=== PATIENT | male | born 1960 | race Caucasian/White ===

== ENCOUNTER 2018-04-19 15:34 | Inpatient (IN) | payer OTHER ==
[~2018-04-19] VITALS: Ht 185.4 cm; Wt 91.8 kg
--- NOTE | ~2018-04-19 | HC ---
[facility] [place] [address] [place] [address] CONSULTATION Name: LILIA KEMP Room #: 213-P ADM IN M.R.#: [id number] Admission: 04/19/18 Attend Phys: Jorden Godwin MD Discharge: Date of : 64 Report #: [id number] THIS REPORT FOR: //name// CC: Jorden Godwin DATE OF SERVICE: 04/19/2018 REFERRING PHYSICIAN: Dr. Jorden Godwin. REASON FOR REFERRAL: Pulmonary embolus. HISTORY OF PRESENT ILLNESS: The patient is a 58-year-old white male who was electively admitted with chest pain. CT chest angiogram performed earlier today shows pulmonary embolus. A pulmonary consultation was requested. The patient states he has been relatively healthy most of his life. He is also active, playing basketball and rock climbing on a regular basis. He states that about a few weeks ago, he noticed that his right calf was swollen and tender. He does not know how he may have injured his calf. He has also been undergoing evaluation and treatment for a low back pain felt to be related to sciatica. About a week ago, he experienced right-sided pleuritic chest pain. Symptoms lasted for a short while and spontaneously resolved. About a week ago, he also developed mild fever and chills. He denies any productive cough. This morning, he awoke with a sharp pleuritic chest pain on the left. This occurred around 2:00 a.m. He was seen in the office. A CT chest angiogram performed earlier today showed small bilateral segmental pulmonary embolus involving the medial and lateral pulmonary arteries of the right middle lobe and also left lower lobe. There appears to be a wedge defect seen in the right lower lobe area. Small pleural effusion is noted on the left. No obvious wedge defect is noted in the left lower lobe area. The patient denies any past history of venous thromboembolic disease. He denies any family history of venous thromboembolic disease. He denies any recent travel, denies any recent trauma or surgery. PAST MEDICAL HISTORY: Otherwise, unremarkable other than low back pain. PAST SURGICAL HISTORY: Otherwise, unremarkable. ALLERGIES: No known allergies. MEDICATIONS: None. FAMILY HISTORY: Both parents are in good health. [address] [address] CONSULTATION Name: LILIA KEMP Room #: 213-P [facility] IN ..#: [id number] Admission: 04/19/18 Attend Phys: Jorden Godwin MD Discharge: Date of : 64 Report #: [id number] SOCIAL HISTORY: . Denies any tobacco or alcohol use. REVIEW OF SYSTEMS: As mentioned above. The patient is quite active, playing basketball, rock climbing. In fact, he was able to play basketball this giving and rock climbing without difficulty. PHYSICAL EXAMINATION: GENERAL: He is awake, alert, in no apparent distress. VITAL SIGNS: Temperature 36.7 degrees Celsius, pulse is 72, respiratory rate 22, blood pressure 154/92 mmHg, saturation 98%. HEENT: Normocephalic, atraumatic. NECK: Supple, without any lymphadenopathy or thyromegaly. CHEST: Breath sounds are clear bilaterally without any rales or wheezes. CARDIOVASCULAR: Normal S1, S2. No murmurs or gallop. There is no JVD. There is no carotid bruit. Pulses are 2+/4+ bilaterally. ABDOMEN: Soft, nontender, no organomegaly or masses felt. GENITOURINARY: Deferred. RECTAL: Deferred. EXTREMITIES: There is no edema, cyanosis or clubbing. LABORATORY DATA: CT chest angiogram as mentioned above. Electrolytes normal. Creatinine is 1.2. Liver enzymes are grossly unremarkable. WBC 7700, hemoglobin 14.0. IMPRESSION: 1. Small bilateral pulmonary embolus in this 58-year-old white male. History suggests possible right calf injury a few weeks ago resulting in edema. If the patient did have injury at that time, this is felt to be provoked event. 2. Pleuritic chest pain, initially in the right side about a week ago and on the left side, likely due to pulmonary infarction. 3. Small left-sided pleural effusion. The patient has a febrile illness recently. May have to monitor this closely. RECOMMENDATION AND DISCUSSION: Based on history, the patient's pulmonary embolus is felt to be provoked. Would recommend at least 6 months of anticoagulation given presence of probable pulmonary infarction. Heparin has been ordered. Would suggest starting Coumadin 24 hours later. If stable without any obvious bleeding complications, an oral agent can be utilized either Coumadin or direct oral anticoagulant. Since this history is not convincing of injury, it may be beneficial, later, after the patient completes about 6 months of anticoagulant therapy to do a hypocoagulable panel. I had a detailed discussion with the patient and his regarding above [facility] [address] [place] [address] CONSULTATION Name: LILIA KEMP Room #: 213-P ADM IN M.R.#: [id number] Admission: 04/19/18 Attend Phys: Jorden Godwin MD Discharge: Date of : 64 Report #: [id number] findings. Thank you for this consultation. <ELECTRONICALLY SIGNED> By: Jmaes Snider MD 04/20/181939 1834 54 James Snider MD /nt
--- NOTE | ~2018-04-19 | 2DMMODE ---
[facility] [place] [address] 2 D/M-MODE ECHOCARDIOGRAM Name: LILIA KEMP Room #: 213-P [facility] IN .R.#: [id number] Admission: 04/19/18 Attend Phys: Jorden Godwin, Discharge: Date of : 64 Date of Service: 04/20/18 0930 Report #: [id number] THIS REPORT FOR: //name// APPROVED REPORT Study performed: 04/20/2018 08:20:56 EXAM: Comprehensive 2D, Doppler, and color-flow Echocardiogram Patient Location: Bedside Room #: 213 Status: routine BSA: 2.16 HR: 88 bpm BP: 122/69 mmHg Rhythm: NSR Other Information Study Quality: Adequate Indications Pulmonary Embolism Chest Pain 2D Dimensions RVDd: 37.59 mm IVSd: 8.78 (7-11mm) LVOT Diam: 23.40 (18-24mm) LVDd: 50.56 mm PWd: 8.63 (7-11mm) Ascending Ao: 32.28 (22-36mm) LVDs: 36.24 (25-40mm) Aortic Root: 34.72 mm IVC: 10.00 mm Volumes Left Atrial Volume (Systole) Single Plane 4CH: 39.50 mL Single Plane 2CH: 34.68 mL LA ESV Index: 20.00 mL/m2 Aortic Valve AoV Peak Marques.: 1.43 m/s AO Peak Gr.: 8.22 mmHg LVOT Max P.79 mmHg LVOT Max V: 1.20 m/s PETERSON Vmax: 3.61 cm2 Mitral Valve E/A Ratio: 1.0 MV Decel. Time: 159.40 ms [facility] [place] [address] [place] [address] 2 D/M-MODE ECHOCARDIOGRAM Name: JUSTOLILIA G Room #: 213-P [facility] IN [facility]#: [id number] Admission: 04/19/18 Attend Phys: Jorden Godwin, Discharge: Date of : 64 Date of Service: 04/20/18 0930 Report #: [id number] MV E Max Marques.: 0.64 m/s MV A Marques.: 0.62 m/s MV PHT: 46.23 ms IVRT: 92.27 ms Pulmonary Valve PV Peak Marques.: 0.90 m/s PV Peak Gr.: 3.23 mmHg Pulmonary Vein P Vein S: 0.29 m/s P Vein A: 0.23 m/s P Vein D: 0.26 m/s P Vein A Dur.: 96.9 msec P Vein S/D Ratio: 1.12 Tricuspid Valve TR Peak Marques.: 2.39 m/s TR Peak Gr.: 22.79 mmHg PA Pressure: 28.00 mmHg Left Ventricle The left ventricle is normal size. There is normal LV segmental wall motion. There is normal left ventricular wall thickness. Left ventricular systolic function is normal. The left ventricular ejection fraction is within the normal range. LVEF is 55-60%. The left ventricular diastolic function is normal. Right Ventricle The right ventricle is normal size. The right ventricular systolic function is normal. Atria The left atrium size is normal. The right atrium size is normal. Aortic Valve The aortic valve is normal in structure. No aortic regurgitation is present. There is no aortic valvular stenosis. Mitral Valve The mitral valve is normal in structure. There is no mitral valve regurgitation noted. No evidence of mitral valve stenosis. Tricuspid Valve The tricuspid valve is normal in structure. There is trace tricuspid regurgitation. Estimated PAP 28 mmHg. There is no pulmonary hypertension. [facility] [address] [place] [address] 2 D/M-MODE ECHOCARDIOGRAM Name: LILIA KEMP Room #: 213-P [facility] IN [facility]#: [id number] Admission: 04/19/18 Attend Phys: Jorden Godwin, Discharge: Date of : 64 Date of Service: 04/20/18 0930 Report #: [id number] Pulmonic Valve The pulmonary valve is normal in structure. There is no pulmonic valvular regurgitation. Great Vessels The aortic root is normal in size. IVC is normal in size and collapses >50% with inspiration. Pericardium There is no pericardial effusion. <Conclusion> The left ventricle is normal size. There is normal left ventricular wall thickness. Left ventricular systolic function is normal. The right ventricle is normal size. The left atrium size is normal. The aortic valve is normal in structure. The mitral valve is normal in structure. There is trace tricuspid regurgitation. Estimated PAP 28 mmHg. There is no pericardial effusion. <ELECTRONICALLY SIGNED> By: Pino Salcido MD 04/20/18929 9 9 Pino Salcido MD /INF
[2018-04-19 17:19] VITALS: BP 154/92
[2018-04-19 18:20] LABS: ABSOLUTE NEUTROPHILS 5.2 thou/uL (1.4-8.2); BASOPHILS 0.5 % (0.0-2.0); EOSINOPHILS 1.8 % (0.0-3.0); LYMPHOCYTES 19.5 % (24.0-44.0); MCH 28.3 pg (26.0-34.0); MONOCYTES 10.7 % (1.0-8.0); PLATELET COUNT 393 thou/uL (150-400); POLYS 67.5 % (36.0-66.0); RBC 4.94 mil/uL (4.50-6.00); RDW 12.6 % (10.5-14.5); WBC 7.7 thou/uL (4.0-11.0)
[2018-04-19 18:23] LABS: ALBUMIN 3.4 g/dL (3.4-5.0); CALCIUM 9.4 mg/dL (8.5-10.1); CREATININE 1.2 mg/dL (0.7-1.3); POTASSIUM 3.6 mmol/L (3.5-5.1); TOTAL BILIRUBIN 0.4 mg/dL (<0.1-1.0); TOTAL PROTEIN 7.8 g/dL (6.4-8.2)
[2018-04-19 18:24] LABS: PROTIME 10.4 Seconds (9.3-11.4)
[2018-04-19 20:41] VITALS: BP 127/87
[2018-04-20 02:49] LABS: HEMOGLOBIN 13.6 gm/dL (14.0-18.0); MCH 27.5 pg (26.0-34.0); MCHC 33.2 g/dL (28.0-37.0); MCV 82.7 fL (80.0-100.0); RBC 4.96 mil/uL (4.50-6.00); RDW 12.6 % (10.5-14.5); WBC 8.6 thou/uL (4.0-11.0)
[2018-04-20 03:35] LABS: CALCIUM 8.9 mg/dL (8.5-10.1); CREATININE 1.1 mg/dL (0.7-1.3); POTASSIUM 3.8 mmol/L (3.5-5.1)
[2018-04-20 04:24] VITALS: BP 122/69
[2018-04-20 08:31] VITALS: BP 149/83
[2018-04-20] MEDS ORDERED: CARDIZEM CD240 MG PO (11:02)
[2018-04-20] MEDS ORDERED: LIPITOR 20 MG T20 M1 PO (11:02)
[2018-04-20 13:14] VITALS: BP 132/85
[2018-04-20 20:30] VITALS: BP 145/74
[2018-04-21 04:45] VITALS: BP 141/77
[2018-04-21 04:47] LABS: PROTIME 10.6 Seconds (9.3-11.4)
[2018-04-21 07:44] VITALS: BP 141/91
[2018-04-21 11:54] VITALS: BP 144/88
[2018-04-21 15:21] VITALS: BP 135/79
[2018-04-21 20:59] VITALS: BP 126/74
[2018-04-22 04:13] VITALS: BP 146/90
[2018-04-22 04:36] LABS: HEMATOCRIT 39.2 % (42.0-52.0); HEMOGLOBIN 12.9 gm/dL (14.0-18.0); MCH 27.5 pg (26.0-34.0); MCHC 32.9 g/dL (28.0-37.0); MCV 83.5 fL (80.0-100.0); RBC 4.69 mil/uL (4.50-6.00); WBC 6.2 thou/uL (4.0-11.0)
[2018-04-22 08:00] VITALS: BP 143/78
[2018-04-22 12:35] VITALS: BP 117/77
[2018-04-22 13:15] LABS: INR 1.4; PROTIME 14.7 Seconds (9.3-11.4)
[2018-04-22] MEDS ORDERED: ENOXAPARIN100 MG/11 SUBQ (16:18)
[2018-04-22] MEDS ORDERED: PERCOCET 10-321 EACH PO (16:19)
[2018-04-22] MEDS ORDERED: COUMADIN 5 MG TA5 M1 PO (16:19)
[2018-04-22] MEDS ORDERED: AZITHROMYCIN 2250 MG PO (16:20)
[2018-04-22] MEDS ORDERED: CEFDINIR300 MG PO (16:20)
[2018-04-22 16:27] VITALS: BP 117/77
== END 2018-04-22 17:36 | disposition home or self-care (01) | DRG 175 ==
LOC: CAT 15:34 → 2N 16:36 → ENTRNSPT 04-22 17:31 → 2N 04-22 17:36
PROVIDERS: Family Medicine; Internal Medicine Pulmonary Disease
DX: I26.99 Other pulmonary embolism without acute cor pulmonale (principal); J18.9 Pneumonia, unspecified organism; I82.409 Acute embolism and thrombosis of unspecified deep veins of unspecified lower extremity
CPT/HCPCS: 10081

== ENCOUNTER → 2018-09-20 | Outpatient (CLI) | payer OTHER ==
[~2018-09-20] VITALS: Ht 185.4 cm; Wt 93.5 kg
[~2018-09-20] MED LIST: AZITHROMYCIN 2250 MG PO; CARDIZEM CD240 MG PO; CEFDINIR300 MG PO; COUMADIN 5 MG TA5 M1 PO; ENOXAPARIN100 MG/11 SUBQ; LIPITOR 20 MG T20 M1 PO; PERCOCET 10-321 EACH PO; PRILOSEC 10MG C10 MG PO
--- NOTE | ~2018-09-20 | HPC ---
[facility] [place] [address] [place] [address] PAIN MANAGEMENT CONSULTATION Name: LILIA KEMP Room #: REG [facility].#: [id number] Admission: 09/20/18 ������������������ Attend Phys: Drake Nina MD Discharge: ������������������ Date of : 64 Report #: [id number] THIS REPORT FOR: //name// CC: IBAN Nina DATE OF SERVICE: 09/20/2018 CHIEF COMPLAINT: Low back pain with radiation into the left leg. HISTORY OF PRESENT ILLNESS: The patient is a pleasant 58-year-old who has been experiencing ongoing pain for several years. In January, he began experiencing symptoms of radiculopathy into the left leg. He complains at times the pain was so severe that he developed muscle spasms. It was incapacitating in his low back and associated with a radiating pain down the lateral aspect of the left leg as far as the foot. It was worsened by long periods of standing. He was taking pain medication, using heat and resting, but the pain has been persistent. At one time, it was worse than it is today as he scores it as a 4/10, worst pain has been 9/10 and incapacitating. He has been able to continue his activity at work, but has limited his physical activities. 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 He understands that wear and tear is common cause of pain as he ages. He has completed an MRI, which does show evidence of an L4-L5 generalized disk bulging with a superimposed small left paracentral disk extrusion, but has disk material extending inferiorly. This compresses the L5 nerve root and the central canal as it exits through the L5-S1 neural foramina. There is also bilateral facet arthropathy and some ligamentum thickening. This is the most prominent finding and is correlating well with his symptoms. MEDICATIONS: Atorvastatin, diltiazem, omeprazole. He is on Coumadin for a DVT following an injury, which then resulted in a pulmonary embolus. He has been on Coumadin for over 6 months. ALLERGIES: None. PAST MEDICAL HISTORY: Significant for hypertension and the above-mentioned DVT and PE. REVIEW OF SYSTEMS: Completed by the patient, describes his PE with some chest pain. He has occasional palpitations and complains of nocturia. Otherwise, negative. 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 Denies use of tobacco, drinks alcohol socially, maybe a couple beverages per week. He does not drink to excess. PHYSICAL EXAMINATION: GENERAL: He is a fit-appearing 58-year-old. VITAL SIGNS: He is 6 feet 1 inch, 206 pounds, with a BMI of 27.2, blood pressure 144/94, heart rate 70, respirations 16. MUSCULOSKELETAL: He moves easily from sitting to standing position and walks without antalgic features. He has good range of motion of the lumbar spine in all planes without exacerbation of pain. Straight leg raising in the supine position reproduces radicular symptoms, but not in the sitting. Deep tendon reflexes are 2+ at knees, trace at the ankles. Sensation intact. IMPRESSION: L5 radiculopathy on the left. He is an excellent candidate for an epidural injection having undergone much conservative therapy without improvement. He has completed chiropractic treatments, massage and physical therapy at home. We will perform the epidural injection when he is off his Coumadin and his INR is below 1.5. He will confirm with Dr. Godwin that it is appropriate for him to do that at this time. Followup visit planned in 1 week. ��������������������������������������������� ���������������������������������������� By: ��������������������������������������������� 1750 1231 Drake Nina MD /nt
[2018-09-20 14:02] VITALS: BP 144/94
--- NOTE | 2018-09-20 14:24 | NUR ---
Pain Clinic Assessment: 1. History of Osteoarthritis: NONE History of Rheumatoid Arthritis: NONE 2. Height: 6 ft. 1 in. 185.4 cm. Weight: 206.2 lb. oz. 93.532 kg. Patient's BMI: 27.2 3. Vital Signs: BP: 144/94 Pulse: 70 Resp: 16 Temp: 02 Sat: 98 ECG Mon: 4. Pain Intensity: 2 5. Fall Risk: Dizziness: N Needs help standing or walking: N Fallen in the last 3 months: N Fall risk comments: 6. Patient on Blood Thinner: WARFARIN 7. History of Hypertension: N 8. Opioid Therapy greater than 6 weeks: Opiate Contract Signed: 9. Risk Assessment Tool Provided: 10. Functional Assessment Tool: 11. Recreational Drug Use: Never Drug Type: Tobacco Use: Never Smoker Tobacco Type: Amount or Packs/day: How Many Years: Alcohol Use: No Frequency: Quant:
== END ==
LOC: PAIN 06:54
DX: M54.16 Radiculopathy, lumbar region (principal); I10 Essential (primary) hypertension; Z86.718 Personal history of other venous thrombosis and embolism; Z86.711 Personal history of pulmonary embolism; Z79.01 Long term (current) use of anticoagulants; Z79.899 Other long term (current) drug therapy

== ENCOUNTER → 2018-09-27 | Outpatient (CLI) | payer OTHER ==
[~2018-09-27] VITALS: Ht 185.4 cm; Wt 93.3 kg
--- NOTE | ~2018-09-27 | HPC ---
[facility] [place] [address] [place] [address] PAIN MANAGEMENT CONSULTATION Name: LILIA KEMP Room #: REG ERIKA Joel#: [id number] Admission: 09/27/18 ������������������ Attend Phys: Drake Nina MD Discharge: ������������������ Date of : 64 Report #: [id number] THIS REPORT FOR: //name// CC: MADHAV Nina DATE OF SERVICE: 09/27/2018 The patient returns to pain clinic today for an epidural injection. He was seen last on 09/20/2018. In order to go forward, we needed to take him off his Coumadin, which he took for DVT and his INR today is 1.0. We have also received preauthorization to go forward with the injection. He has classic symptoms of lumbar radiculopathy. We reviewed his x-rays, reevaluation from one week ago discussed the potential benefits and risks of the procedure and he is anxious to proceed. PHYSICAL EXAMINATION: Today, he is ready to go. His blood pressure 149/91, heart rate 62, respirations 14. Continues to have some straight leg raising discomfort in the lateral position that follows in the supine position and it follows the L5-S1 distribution. IMPRESSION: L5 radiculopathy, left. PROCEDURE: L4-L5: Epidural steroid injection on the left paramedian approach. PROCEDURE: He was taken to fluoroscopic suite, placed prone, skin prepped with ChloraPrep. Skin anesthetized over the L4-L5 interspace to the left of midline. A 20-gauge Tuohy epidural needle advanced on the first attempt in the epidural space with loss of resistance technique. There was no blood or CSF aspirated. A 1 mL of Omnipaque was injected. Good spread of dye observed in the epidural space followed by 3 mL of 0.5% lidocaine mixed with 80 mg of triamcinolone. He tolerated the procedure well. There were no complications. Pain score was 0 in the recovery room and discharged. Followup visit is planned in 1-2 months, we may repeat another injection, but if he is doing well, of course, we will not proceed with further injections unless necessary. We will seek preauthorization in case he needs another injection for his followup appointment, but he is instructed that if he is doing well to cancel his next visit. Doses followed by 3 mL of 0.5% lidocaine mixed with [address] [address] PAIN MANAGEMENT CONSULTATION Name: LILIA KEMP Room #: REG ERIKA Maldonado#: [id number] Admission: 09/27/18 ������������������ Attend Phys: Drake Nina MD Discharge: ������������������ Date of : 64 Report #: [id number] mg of triamcinolone. He tolerated the procedure well and was observed for 45 minutes and discharged. ��������������������������������������������� ���������������������������������������� By: ��������������������������������������������� 1022 [id number] Drake Nina MD /nt
[2018-09-27 10:11] VITALS: BP 149/91
--- NOTE | 2018-09-27 10:24 | NUR ---
Pain Clinic Assessment: 1. History of Osteoarthritis: NONE History of Rheumatoid Arthritis: NONE 2. Height: 6 ft. 1 in. 185.4 cm. Weight: 205.8 lb. oz. 93.350 kg. Patient's BMI: 27.2 3. Vital Signs: BP: 149/91 Pulse: 62 Resp: 14 Temp: 02 Sat: 99 ECG Mon: 4. Pain Intensity: 3 5. Fall Risk: Dizziness: N Needs help standing or walking: N Fallen in the last 3 months: N Fall risk comments: 6. Patient on Blood Thinner: WARFARIN 7. History of Hypertension: N 8. Opioid Therapy greater than 6 weeks: N Opiate Contract Signed: 9. Risk Assessment Tool Provided: 10. Functional Assessment Tool: 11. Recreational Drug Use: Never Drug Type: Tobacco Use: Never Smoker Tobacco Type: Amount or Packs/day: How Many Years: Alcohol Use: No Frequency: Quant:
== END | disposition home or self-care (01) ==
LOC: PAIN 06:53
DX: M54.16 Radiculopathy, lumbar region (principal); Z79.899 Other long term (current) drug therapy; Z79.01 Long term (current) use of anticoagulants

== ENCOUNTER → 2018-11-09 | Outpatient (CLI) | payer OTHER | LOC: ULTRA 13:25 | DX: I26.99 Other pulmonary embolism without acute cor pulmonale (principal); M79.89 Other specified soft tissue disorders ==

== ENCOUNTER → 2019-01-20 | Outpatient (CLI) | payer OTHER ==
[~2019-01-20] MED LIST changes: +LISINOPRIL20 MG PO
== END ==
LOC: CAT 14:35
DX: Z13.6 Encounter for screening for cardiovascular disorders (principal); E78.00 Pure hypercholesterolemia, unspecified; I25.10 Atherosclerotic heart disease of native coronary artery without angina pectoris

== ENCOUNTER → 2019-01-20 | Outpatient (CLI) | payer OTHER ==
[~2019-01-20] VITALS: Ht 185.4 cm; Wt 91.2 kg
--- NOTE | ~2019-01-20 | HPC ---
[facility] [place] [address] PAIN MANAGEMENT CONSULTATION Name: CLARISSE MAR Room #: REG ERIKA AlvesGricelda#: [id number] Admission: 01/20/19 Attend Phys: Drake Nina MD Discharge: Date of : 64 Report #: [id number] THIS REPORT FOR: //name// CC: Jorden Nina DATE OF SERVICE: 01/20/2019 Followup visit for recurring low back pain with radiculopathy. SUBJECTIVE: The patient returns to pain clinic today in followup. I provided him with an epidural steroid injection on 09/20/2018. He had months of excellent pain relief. The pain then began to return. Pain today is scored as a 3-4/10. Once again radiates into the left leg. We reviewed his findings, his injection. His MRI and the injection from his previous visit in the clinic. MEDICATIONS: Aleve 1 daily, omeprazole 10 mg daily, lisinopril 20 mg daily, diltiazem 240 extended release q.24 hours. ALLERGIES: None. 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 VITAL SIGNS: Blood pressure 121/89, heart rate 70, respirations 14. He is 6 feet 1, 201 pounds, BMI 26.5. MUSCULOSKELETAL: He moves independently and easily from sitting to standing position, ambulates without difficulty. Deep tendon reflexes are normal in lower extremities. Straight leg raising reproduces pain into the left L5 distribution. Sensation is intact. No focal weakness is noted. IMPRESSION: Lumbar radiculopathy, recurrent. He has evidence of a disk extrusion at L4-L5 with disk material extending inferiorly. This compromises the left L5 nerve root. PLAN: I recommend repeating the epidural injection. This will be his second injection and the last was performed over 4 months ago with months of good relief. We talked about the importance of maintaining a good exercise program for healing and we anticipate a time when he will no longer require epidural injections with any frequency as long as this continues to heal. No medications were ordered. It is unfortunate insurance requires a preauthorization, otherwise, we would proceed with the injection today. We will [address] [address] PAIN MANAGEMENT CONSULTATION Name: CLARISSE MAR [id number] Admission: 01/20/19 Attend Phys: Drake Nina MD Discharge: Date of : 64 Report #: [id number] wait until the insurance company tells as we can go forward, so that he is not suicidal with an expensive bill. Followup visit planned next week. By: 1748 0057 Drake Nina MD /nt
[2019-01-20 13:11] VITALS: BP 121/89
--- NOTE | 2019-01-20 13:33 | NUR ---
Pain Clinic Assessment: 1. History of Osteoarthritis: NONE History of Rheumatoid Arthritis: NONE 2. Height: 6 ft. 1 in. 185.4 cm. Weight: 201.0 lb. oz. 91.173 kg. Patient's BMI: 26.5 3. Vital Signs: BP: 121/89 Pulse: 70 Resp: 14 Temp: 02 Sat: 98 ECG Mon: 4. Pain Intensity: 3-4 5. Fall Risk: Dizziness: N Needs help standing or walking: N Fallen in the last 3 months: N Fall risk comments: 6. Patient on Blood Thinner: WARFARIN 7. History of Hypertension: N 8. Opioid Therapy greater than 6 weeks: N Opiate Contract Signed: 9. Risk Assessment Tool Provided: 10. Functional Assessment Tool: 11. Recreational Drug Use: Never Drug Type: Tobacco Use: Never Smoker Tobacco Type: Amount or Packs/day: How Many Years: Alcohol Use: No Frequency: Quant:
== END ==
LOC: PAIN 07:10
DX: M51.16 Intervertebral disc disorders with radiculopathy, lumbar region (principal); Z79.899 Other long term (current) drug therapy

== ENCOUNTER → 2019-01-27 | Outpatient (CLI) | payer OTHER ==
[~2019-01-27] VITALS: Ht 185.4 cm; Wt 90.8 kg
[2019-01-27 15:24] VITALS: BP 126/89
--- NOTE | 2019-01-27 15:59 | NUR ---
Pain Clinic Assessment: 1. History of Osteoarthritis: NONE History of Rheumatoid Arthritis: NONE 2. Height: 6 ft. 1 in. 185.4 cm. Weight: 200.2 lb. oz. 90.810 kg. Patient's BMI: 26.4 3. Vital Signs: BP: 126/89 Pulse: 60 Resp: 16 Temp: 02 Sat: 97 ECG Mon: 4. Pain Intensity: 5 5. Fall Risk: Dizziness: Needs help standing or walking: Fallen in the last 3 months: Fall risk comments: 6. Patient on Blood Thinner: WARFARIN 7. History of Hypertension: N 8. Opioid Therapy greater than 6 weeks: N Opiate Contract Signed: 9. Risk Assessment Tool Provided: 10. Functional Assessment Tool: 11. Recreational Drug Use: Never Drug Type: Tobacco Use: Never Smoker Tobacco Type: Amount or Packs/day: How Many Years: Alcohol Use: No Frequency: Quant:
--- NOTE | 2019-02-10 08:38 | HPC ---
[facility] [place] [address] PAIN MANAGEMENT CONSULTATION Name: PADMAJA OSIELHUGOCLARISSE ABDUL Room #: REG ERIKA Joel#: [id number] Admission: 01/27/19 ������������������ Attend Phys: Drake Nina MD Discharge: ������������������ Date of : 64 Report #: [id number] THIS REPORT FOR: //name// CC: Jorden Nina DATE OF SERVICE: 01/27/2019 Followup visit for low back pain with radiculopathy and mid thoracic pain. The patient returns to pain clinic today after his visit on 01/20/2019. We have received preauthorization to go forward with the epidural injection. He complained today of ongoing pain that interferes on a daily basis. This pain is in the mid back and does not appear to be radicular in nature. He did report that he had some relief after his epidural in 08/2018, but it was short-lived and the pain returned. We investigated this pain further today. He does not have an MRI that extends above T12-L1 although there is some degenerative disk bulging at that level. He has localized tenderness over the T4 through T6 range and some also around T6 to T8. This is painful along the spinous process. There is no significant radicular component. I reviewed the history of repeated trauma during this time in the . 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 He described jumping out of an airplane as psychological as you leave and physical as you land. He does have a history of DVT and previously been on Coumadin. He is no longer on Coumadin. IMPRESSION: Lumbar radiculopathy, recurrent; disk extrusion L4-L5 compromising in left L4-L5 nerve root. PROCEDURE: Lumbar epidural injection under fluoroscopic guidance, L4-L5. DESCRIPTION OF PROCEDURE: He was taken to fluoroscopic suite, placed prone, skin prepped with ChloraPrep. Skin was anesthetized over the L4-L5 interspace. A 20-gauge Tuohy epidural needle was advanced into the epidural space with loss of resistance technique. There was no blood or CSF aspirated. 1 mL of Omnipaque was injected, followed by 3 mL of 0.5% lidocaine mixed with 80 mg of triamcinolone. He tolerated the procedure well and was observed for 45 minutes and discharged. [address] [address] PAIN MANAGEMENT CONSULTATION Name: CLARISSE MAR Room #: REG ERIKA Maldonado#: [id number] Admission: 01/27/19 ������������������ Attend Phys: Drake Nina MD Discharge: ������������������ Date of : 64 Report #: [id number] Followup visit planned as needed. ��������������������������������������������� <ELECTRONICALLY SIGNED> ���������������������������������������� By: Drake Nina MD ��������������������������������������������� 02/10/19 0838 1828 0209 Drake Nina MD /nt
== END | disposition home or self-care (01) ==
LOC: PAIN 07:01
DX: M51.16 Intervertebral disc disorders with radiculopathy, lumbar region (principal); G89.29 Other chronic pain; Z79.899 Other long term (current) drug therapy; Z86.711 Personal history of pulmonary embolism; Z79.01 Long term (current) use of anticoagulants

== ENCOUNTER 2020-02-06 14:19 | Observation (INO) | payer BC, OTHER ==
[2020-02-06] VITALS (10 sets, daily range): BP systolic 133–148; BP diastolic 75–94
[~2020-02-06] VITALS: Ht 185.4 cm; Wt 90.7 kg
[2020-02-06 16:22] LABS: HEMATOCRIT 43.8 % (42.0-52.0); HEMOGLOBIN 14.9 gm/dL (14.0-18.0); MCH 28.6 pg (26.0-34.0); MCV 84.1 fL (80.0-100.0); RBC 5.21 mil/uL (4.50-6.00); RDW 13.1 % (10.5-14.5); WBC 5.2 thou/uL (4.0-11.0)
[2020-02-06 16:30] LABS: CALCIUM 9.5 mg/dL (8.5-10.1); POTASSIUM 3.9 mmol/L (3.5-5.1)
[2020-02-06] MEDS ORDERED: LIPITOR20 MG PO (16:39)
[2020-02-06] MEDS ORDERED: PRINIVIL20 M1 PO (16:40)
[2020-02-06] MEDS ORDERED: PRILOSEC OTC20 MG PO (16:41)
--- NOTE | 2020-02-06 19:45 | NUR ---
PATIENT ARRIVED FROM DISPATCHER CHIEF OIL VIA [place], VSS AND POST CARDIAC CATH DOCUMENTED. AND WILL CONTNUE TO MONITOR PATIENT.
[2020-02-07 00:16] VITALS: BP 143/99
--- NOTE | 2020-02-07 02:47 | NUR ---
ASSUMED CARE OF PT FROM DAY SHIFT . PT RESTING IN BED. 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 PT UP AFTER 2029 , DENIES DIZZINESS OR CHEST PAIN PT AMBULATED TO BR GAIT STEADY .PT RESTING QUIETLY THROUGHOUT HOURLY ROUNDS, WILL CONITNUE WITH CURRENT PLAN OF CARE.
--- NOTE | 2020-02-07 02:49 | NUR ---
ASSUMED CARE OF PT FROM DAY SHIFT PT APEARS AGITATED WITH MILD CONFUSION , CIWA 15 PT MEDICATED PER PROTOCOL. PT THEN APPEARS TO BE SLEEPING, CIWA 5 AFTER 2 HOURS BUT REMAIN DROWSY, MEDICATION CLEMENCIA. PT AWAKE AROUND 0030 REQEUSTING MEDICATION FOR SLEEP , " I WANT THAT SHOT AGAIN THJAT MAKE ME SLEEP". INFORMED PT THE REASON WHY HE RECIEVED MEDICATION , PT THEN STATED HE WAS HAVING PAIN AND REQUESTED PAIN MEDICATON. IV MORPHINE GIVEN. PT SLEEPING SHORTLY AFTER MEDICATON GIVEN. CARCIAC MONITOR SHOWS NSR. PT NPO FOR AM EGD. WILL CONTINUE WITH CURRENT PLAN OF CARE.
[2020-02-07 05:04] LABS: HEMATOCRIT 40.6 % (42.0-52.0); HEMOGLOBIN 13.6 gm/dL (14.0-18.0); MCH 28.3 pg (26.0-34.0); MCHC 33.4 g/dL (28.0-37.0); MCV 84.7 fL (80.0-100.0); RBC 4.8 mil/uL (4.50-6.00); RDW 13.1 % (10.5-14.5); WBC 7.4 thou/uL (4.0-11.0)
[2020-02-07 05:20] LABS: ALBUMIN 3.4 g/dL (3.4-5.0); CALCIUM 8.7 mg/dL (8.5-10.1); CREATININE 0.9 mg/dL (0.7-1.3); POTASSIUM 4.2 mmol/L (3.5-5.1); TOTAL BILIRUBIN 0.4 mg/dL (0.2-1.0); TOTAL PROTEIN 6.5 g/dL (6.4-8.2)
[2020-02-07 05:33] VITALS: BP 156/103
[2020-02-07 07:40] VITALS: BP 105/92
--- NOTE | 2020-02-07 08:18 | EKG ---
[facility] [place] [address] ELECTROCARDIOGRAM REPORT Name: CLARISSE MAR Room #: [facility] M.R.#: [id number] Admission: 02/06/20 Attend Phys: Brandt Carver MD, Discharge: Date of : 64 Report #: [id number] THIS REPORT FOR: cc: Jorden Godwin MD, Neal A. MD Couchonnal, Luis F. 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
--- NOTE | 2020-02-07 08:19 | EKG ---
[facility] [place] [address] ELECTROCARDIOGRAM REPORT Name: PADMAJA CARTAGENARUDYWENDIEROBB Room #: [facility] M.R.#: [id number] Admission: 02/06/20 Attend Phys: Brandt Carver MD, Discharge: Date of : 64 Report #: [id number] THIS REPORT FOR: cc: Jorden Godwin MD, Neal A. MD Couchonnal, Luis F. 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
[2020-02-07] MEDS ORDERED: EFFIENT10 MG PO (08:37)
[2020-02-07] MEDS ORDERED: ASPIRIN325 PO (08:37)
--- NOTE | 2020-02-07 09:25 | CATHLAB ---
[facility] [place] [address] INVASIVE PROCEDURE REPORT Name: CLARISSE MAR Room #: 206-P ADM Casey M.RGricelda#: [id number] Admission: 02/06/20 Attend Phys: Brandt Carver MD, Discharge: Date of : 64 Report #: [id number] THIS REPORT FOR: cc: Jorden Godwin MD, Neal A. MD Park, Jin S. MD ~ APPROVED REPORT Study performed: 02/06/2020 16:19:17 Patient Details Patient Status: Out-Patient Room #: The patient is a 60 year-old male Event Personnel Pino Salcido Regulatory Associate, Rod Grant RN RN, Shikha Rizo Monitor, Huong Livingston RTR, TIP FINISHER Scrub Procedures Performed Art Access - R femoral artery* 80194 Initial Mod Sed Same Phys/QHP Gr5y 173705 40420 Mod Sed Same Phys/QHP Ea 256690 Left Heart Cath w/or w/o Coronaries 6995096 [facility] [address] [facility] w/wo Plasty Single LAD 013080 Hemostasis w/ Mynx Indication Dyspnea, Positive stress test, Chest pain Risk Factors Hypercholesterolemia, Coronary Artery DiseaseHypertension Procedure Narrative The patient was brought electively to the Cardiac Catheterization Laboratory and was prepped and draped in a sterile manner. The Right Groin^ was infiltrated with 1% Lidocaine subcutaneous anesthesia. A PINNACLE 4FR Sheath #[id number] sheath was inserted into the RFA^. Coronary angiography was performed using coronary diagnostic catheters. The right coronary system was accessed and visualized with a JR 4 catheter. The left coronary system was accessed and visualized with a JL 4 catheter. The left ventricle was accessed and visualized with a Pigtail catheter. Left ventricular/Aortic Valve gradient assessed via catheter pullback. Pre-demployment femoral angiogram was performed . Closure device was deployed with a 6 Fr Mynx. The patient tolerated the procedure well and there were no complications associated with the procedure. There was no hematoma. [facility] [address] [place] [address] INVASIVE PROCEDURE REPORT Name: PADMAJA ROBINSROBB Room #: [address] [place] [address] [place] [facility]#: [id number] Admission: 02/06/20 Attend Phys: Brandt Carver, Discharge: Date of : 64 Report #: [id number] Intraoperative Conscious Sedation Sedation start time: 16:53 Case end Time: 17:39 Fentanyl 200 mcg Versed 4 mg Fluoro Time: 8.34 minutes Dose: DAP 8649.00 cGycm2 1135 mGy Contrast Type and Amount: Omnipaque 190 ml Coronary Angiography The patient's coronary anatomy is right dominant. Diagnostic Cath Left Main Left main artery is a large-caliber vessel, with no flow-limiting lesions. LAD The LAD is a moderate-sized caliber vessel, traversing the anterior wall and wrapping around the apex. There is a severe stenosis in the proximal segment, at least 90%. Diagonal 1 This is a small to moderate-sized caliber vessel, patent with no flow-limiting lesions. Diagonal 2 There is a small to moderate-sized caliber vessel, with a moderate stenosis at the ostium, 40%. Circumflex The left circumflex artery is a moderate-sized caliber vessel, with mild disease proximally, 20%. OM1 This is a moderate-sized caliber vessel, patent with no flow-limiting lesions. OM2 This is a small to moderate-sized caliber vessel, patent with no flow-limiting lesions. Right Coronary There is mild disease in the proximal segment and a moderate stenosis in the distal segment, 40%. R PDA This is a small to moderate-sized caliber vessel, patent with no flow-limiting lesions. RPLV This is a small to moderate-sized caliber vessel, patent with no flow-limiting lesions. Left Ventriculography Left Ventriculography was not performed. Ejection Fraction was >55% based off patient's Echocardiogram. An LVEDP was measured and there is no gradient across the outflow tract. Hemodynamics The aortic pressure is 138/73 mmHg with a mean of 100 mmHg. The left ventricular pressure is 146/11 mmHg with a mean of mmHg. The left ventricular end diastolic pressure is [address] [address] INVASIVE PROCEDURE REPORT Name: CLARISSE MAR Room #: 206-P ADM [place] M.R.#: [id number] Admission: 02/06/20 Attend Phys: Brandt Carver, Discharge: Date of : 64 Report #: [id number] PCI Technique Lesion Percutaneous coronary intervention was performed on the proximal left anterior descending artery segment. The lesion stenosis prior to intervention was 90% with TAJ 3 flow. A VISTA 6FR XB 3.5 #[id number] Guide Catheter was used to engage the ostium. A Luge Wire .014 x 182CM #[id number] Interventional Guidewire was used to cross the lesion. BALLOON DILATION A Balloon catheter Euphora RX 2.5 x 15 #[id number] was inserted and inflated up to 12.00atm for 10seconds. STENT DEPLOYMENT A drug-eluting stent RESOLUTE JENNIFER RX 3.0 X 18 #[id number] was inserted and inflated up to 18.00atm for 17seconds. POST STENT DEPLOYMENT BALLOON DILATION A Balloon catheter Euphora NC RX 3.0 x 12 #[id number] was inserted and inflated up to 18.00atm for 10seconds. Final angiography reveals 0 % stenosis with TAJ 3 flow. Conclusion 1. Successful insertion of a drug-eluting stent into the proximal LAD stenosis. 2. Mild to moderate disease in the left circumflex, RCA and second diagonal artery. 3. Normal LV systolic function. 4. Recommend dual antiplatelet therapy and aggressive risk factor management. <ELECTRONICALLY SIGNED> By: Pino Salcido MD 02/07/20923 3 3 Pino Salcido MD /INF
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
[2020-02-07 10:15] VITALS: BP 150/92
== END 2020-02-07 10:39 | disposition home or self-care (01) ==
LOC: SJCVCIMAG 14:19 → CATH 14:19 → 2N 18:04
PROVIDERS: Internal Medicine Cardiovascular Disease; ADMIT Internal Medicine; ATTEND Internal Medicine
DX: I25.110 Atherosclerotic heart disease of native coronary artery with unstable angina pectoris (principal); I10 Essential (primary) hypertension; E78.00 Pure hypercholesterolemia, unspecified; I26.99 Other pulmonary embolism without acute cor pulmonale; Z79.899 Other long term (current) drug therapy

== ENCOUNTER → 2021-05-27 | Outpatient (CLI) | payer OTHER ==
[~2021-05-27] MED LIST changes: +ASPIRIN325 PO; +EFFIENT10 MG PO; +LIPITOR20 MG PO; +PRILOSEC OTC20 MG PO; +PRINIVIL20 M1 PO
== END ==
LOC: SJCVCIMAG 07:49
PROVIDERS: ATTEND Internal Medicine
DX: I65.23 Occlusion and stenosis of bilateral carotid arteries (principal); R00.0 Tachycardia, unspecified; I49.3 Ventricular premature depolarization; I49.1 Atrial premature depolarization; E04.1 Nontoxic single thyroid nodule; I25.10 Atherosclerotic heart disease of native coronary artery without angina pectoris; M54.2 Cervicalgia; I10 Essential (primary) hypertension; E78.5 Hyperlipidemia, unspecified